=== PATIENT | female | born 1955 | race Caucasian/White ===

== ENCOUNTER 2019-01-19 16:40 | Day surgery (SDC) ==
[2019-01-19] MEDS ORDERED: NS 1,000 ML IV PRN (18:45)
[2019-01-19] MEDS ORDERED: ZOFRAN IV PRN (18:48)
[2019-01-19] MEDS ORDERED: DILAUDID IV PRN (18:50)
--- NOTE | 2019-01-19 19:24 | Diag Imaging Result Doc PS360 ---
EXAM: CT ABD/PELVIS W/PO AND IV CON - 01/19/2019 HISTORY: CHOLECYSTITIS TECHNIQUE: CT abdomen/pelvis with oral and intravenous contrast COMPARISON: 01/05/2019 ultrasound abdomen FINDINGS: The visualized lung bases appear clear. The gallbladder is mildly distended. The gallbladder andrade appear mildly thickened, with hazy external margins. There are no gross pericholecystic inflammatory changes identified, but the possibility of cholecystitis cannot be excluded. There is apparent sludge in the dependent portion of the gallbladder. There are no discrete calcified gallstones identified. The common bile duct is dilated up to 1.3 cm. The common bile duct measured 6 mm on the prior ultrasound. There is no discrete calcified common duct stone identified. There is no pancreatic mass or inflammation identified. There are no substantial abnormalities of the liver, spleen, or adrenal glands identified. There are nonspecific small retroperitoneal lymph nodes. There is a small broad-based anterior pelvic wall hernia which contains small bowel. There are no complicating features identified. There is no evidence of bowel obstruction. The cecum extends to the posterior pelvis. There are postsurgical changes at the rectosigmoid junction. There is no substantial bowel wall thickening identified. There is no free air, free fluid, or abscess identified. IMPRESSION: Mildly distended gallbladder. Mild thickening of gallbladder andrade, with hazy external margins. Sludge in the dependent portion of the gallbladder. Cholecystitis cannot be excluded. Dilated common bile duct, no specific etiology for which is apparent. This exam was performed using automated exposure control, adjustment of mA or kV according to patient size, and/or use of iterative reconstruction technique. Electronically signed by Ashish Palomino 01/19/2019 7:22 PM
[2019-01-19 20:05] LABS: URINE SOURCE CLEAN CATCH
[2019-01-19 20:11] LABS: BILIRUBIN URINE NEGATIVE (NEGATIVE); BLOOD URINE NEGATIVE (NEGATIVE); COLOR STRAW; GLUCOSE URINE NEGATIVE (NEGATIVE); KETONE URINE NEGATIVE (NEGATIVE); LEUKOCYTES URINE NEGATIVE (NEGATIVE); NITRITE URINE NEGATIVE (NEGATIVE); PH URINE 6.5; PROTEIN URINE NEGATIVE (NEGATIVE); SP GRAVITY URINE 1.014; TURBIDITY URINE CLEAR (CLEAR); UROBILINOGEN URINE NORMAL (NORMAL)
[2019-01-19 20:13] LABS: UR EPITHELIAL CELLS <10 /HPF (<10); URINE BACTERIA NEGATIVE /HPF; URINE RBC <10 /HPF (<10); URINE WBC <10 /HPF (<10)
[2019-01-19] MEDS: ZOSYN 3.375 GM in NS 50 ML IV SCH (21:03)
[2019-01-20] MEDS: ZOSYN 3.375 GM in NS 50 ML IV SCH ×4 (01:09→20:27)
--- NOTE | 2019-01-20 05:43 | HISTORY AND PHYSICAL ---
CHIEF COMPLAINT: "Pain across my upper abdomen since Wednesday." HISTORY OF PRESENT ILLNESS: This is a 63-year-old white female, well known to me, that has a of a bit of a complicated history. In 2008, she was found to have a very large rectal mass which ultimately turned out to be adenocarcinoma of the rectum, T3, N0, M0. She underwent an embolic low anterior resection, small-bowel resection, and total abdominal hysterectomy/bilateral salpingo- oophorectomy on 12/28/[address] Ramakrishna Montemayor in [place]. She subsequently underwent radiation therapy by Dr. Lani Pisano. She then underwent chemotherapy by Dr. Velasquez of [facility]. She had a very uneventful recovery and has been disease free since that time. She has been seeing Dr. Ramakrishna Montemayor on a yearly basis. On the week of 01/05/2019, she presented to my office after having a couple episodes of vomiting after she "ate a grilled cheese at a local restaurant in [place]." She felt like she had food poisoning. She did have some upper abdominal pain which began on the right side and would radiate to the left. She had several loose bowel movements. She was treated conservatively but her laboratory data at the time of her presentation showed a white blood cell count of 7.1 with a hemoglobin and hematocrit of 15 and 44,. Her liver enzymes showed alkaline phos of 102, SGOT of 16, SGPT of 14. A sonogram of the abdomen was performed, which revealed what appeared to be a small gallbladder polyp. Otherwise, no acute or active disease. There was no complicating features around the gallbladder. The patient did well until Wednesday of this past weekend, when she began having discomfort under her ribs which would radiate across the upper abdominal area. She described it as a "spasm." It would be sudden and escalating. She would get very nauseous and clammy. She did have some loose bowel movements. She had no fever or chills. She presented to my office today for re-evaluation, where she was found to be in moderate distress due to upper abdominal pain. She is admitted for further evaluation and treatment. PAST MEDICAL HISTORY: Surgeries: 12/28/2008 she had an embolic low anterior resection, small- bowel resection, total abdominal hysterectomy/bilateral salpingo-oophorectomy by Dr. Ramakrishna Montemayor in [place]. She had a in 1989. Medical illnesses: None, other then the tumor was an adenocarcinoma. It was a T3, N0, M0 adenocarcinoma of the rectum. She has had no evidence of recurrence. She underwent radiation therapy with Xeloda, with a total dose of 5040 cGy. She had no abnormal occurrences. She also underwent chemotherapy by Dr. Velasquez of [facility]. She had 8 treatments of FOLFOX. CURRENT MEDICATIONS: Include none. ALLERGIES: To Macrodantin, which gives her rash; Amoxil and cephalexin. SOCIAL HISTORY: She is a , white female. 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 She does not smoke nor drink. She had 2 boys by . FAMILY HISTORY: Her Mom and Dad are both living. Her Dad has mycosis fungoides. PHYSICAL EXAMINATION: GENERAL: Shows a pleasant white female, in no acute distress, but she is very uncomfortable with upper abdominal pain. VITAL SIGNS: Temperature is 97.4 degrees, pulse 67, respirations are 18, O2 saturation 99%, blood pressure 160/85. Weight 219 pounds. She is 64.5 inches tall. HEENT: TMs are clear. Pupils equally round, reactive. Nasal mucosa is moist. Oropharynx is clear. NECK: Supple. Good carotid pulses. No bruits. LUNGS: Clear. HEART: With a regular rate and rhythm. No murmur, rub, or gallop. ABDOMEN: Soft, somewhat quiet. She is not distended. She has a slightly positive Parker sign in the right upper quadrant. She has some tenderness to deep palpation and percussion in the right upper quadrant. MUSCULOSKELETAL/NEUROLOGIC: Intact with no peripheral edema, clubbing, or cyanosis. LABORATORY DATA: Current laboratory data reveals a sodium of 137, potassium was 3.16, BUN and creatinine 13 and 0.8, respectively. Blood sugar 117. Liver enzymes now show a total bilirubin of 2.6, alkaline phos 424, AST 105, ALT 237. Amylase 58. White blood cell count 5.0, hemoglobin and hematocrit 14 and 40, respectively with an MCV of 90. IMPRESSION: 1. A 63-year-old, white female, with what appears to be acute cholecystitis, now with possible common duct obstruction. There is no evidence for pancreatitis. CT scan is pending with and without contrast of the abdomen and pelvis at [facility]. 2. History of adenocarcinoma of the rectum in 2008, status post low anterior resection, radical hysterectomy/bilateral salpingo-oophorectomy. Followed by adjuvant treatment of chemotherapy and radiation therapy. No evidence for recurrences. 3. CT scan of the abdomen and pelvis is pending. We will discuss with surgery depending upon the findings of the CT scan. Patient request Dr. Stefano Leos if he is available. PLAN: 1. We will admit to [facility]. 2. NPO except for ice chips. 3. IV fluids using normal saline. 4. We will add Zosyn 3.75 mg every 6 hours. 5. I have discussed this with her in detail. cc: Ismael Leos MD
--- NOTE | 2019-01-20 08:31 | EKG Report ---
Test Performed on : 01/20/2019 08:09:59 AM Test Reason : pre-op Blood Pressure : / mmHG Vent. Rate : 059 BPM Atrial Rate : 059 BPM P-R Int : 168 ms QRS Dur : 134 ms QT Int : 484 ms P-R-T Axes : 068 -38 036 degrees QTc Int : 479 ms Sinus bradycardia. Left axis deviation Right bundle branch block Abnormal ECG No previous ECGs available Confirmed by Rebecca WALKER, Phillip Buck ([id number]) on 01/20/2019 9:10:30 AM
[2019-01-20] MEDS: POTASSIUM CHLORIDE 20 MEQ/SWI 20 MEQ/100 ML IVPB IV SCH ×3 (08:36→13:52)
[2019-01-20 09:22] LABS: AGAP 13; BUN 10 mg/dL (8-22); CALCIUM 9.6 mg/dL (8.8-10.2); CHLORIDE 107 mmol/L (98-107); COSMO 286; CREATININE 0.9 mg/dL (0.5-0.9); ESTIMATED GFR > 60; GLUCOSE 95 mg/dL (70-104); POTASSIUM 3.4 mmol/L (3.5-5.1); SODIUM 144 mmol/L (136-145); TCO2 24 mmol/L (25-35)
[2019-01-20] MEDS ORDERED: ZOSYN ONE (10:34)
--- NOTE | 2019-01-20 11:28 | PROGRESS NOTE ---
DATE: 01/20/2019 CHIEF COMPLAINT: No problems. VITAL SIGNS: Temperature is 97.7 degrees, pulse 60, respirations 18, blood pressure 136/74, O2 saturation 99%. Lipase last evening was 24. EKG is currently being done. Surgical consult has been done by Dr. Stefano Leos. PHYSICAL EXAMINATION: The patient is awake and alert. She complains of no pain. IMPRESSION: A 63-year-old, white female, now with acute cholecystitis and obstructed common bile duct. A CT scan yesterday evening demonstrated what appeared to be gallbladder sludge with a dilated common duct. There was pericholecystic inflammatory changes. No obvious calcified stone in the duct. The common bile duct measured 1.3 cm at its widest point. PLAN: 1. Patient is to undergo laparoscopic cholecystectomy later today by Dr. Stefano Leos. Explanations have been made to her in detail by both Dr. Stefano Leos and myself. She is certainly agreeable. 2. We will follow postoperatively. 3. Discussion was made that she perhaps might need an ERCP/stent if the distal common bile duct is not patent. 4. Hopefully she will be able to be discharged later this evening. 5. Her potassium on admission was 3.16. We will give her 2 doses of potassium preoperatively. We will check a day potassium level after her 1st dose. cc: MD Eugene Squires MD
--- NOTE | 2019-01-20 15:48 | GENERAL SURGERY CONSULTATION ---
DATE: 01/20/2019 REASON FOR CONSULTATION: Abdominal pain with concerns of cholecystitis and biliary obstruction. HISTORY OF PRESENT ILLNESS: A 63-year-old female who has had episodic colicky pain worsening over the last several weeks to months. She had an abdominal ultrasound that indicated a gallbladder polyp with normal LFTs within the last several weeks. She had symptom-free interval, however has the last several days had 2 more severe attacks that she describes as cramping pain that alleviated spontaneously. The most severe of which was yesterday afternoon, prompting further evaluation which showed elevation of her bilirubin in the 2 range with AST, ALT, and alkaline phosphatase. CT scan showed some mild biliary dilation, some thickening of the gallbladder with some sludge in the gallbladder, but no other extrinsic or intrinsic hepatic process. She feels better this morning and denies any jaundice. Her bowel function has been normal. She does have a history of rectal carcinoma treated with low anterior resection and adjuvant radiation and chemotherapy 10 years ago. PAST MEDICAL HISTORY: History of rectal carcinoma. PAST SURGICAL HISTORY: She has had a low anterior resection in 2008. She has had a total abdominal hysterectomy and bilateral salpingo-oophorectomy. She has had C- sections in the past. SOCIAL HISTORY: She is a retired teacher, now works at [employer]. She does not smoke or drink. FAMILY HISTORY: Reviewed. No history of cancer. REVIEW OF SYSTEMS: Ten point review of systems negative except what is mentioned in HPI. OBJECTIVE: General: She is afebrile, pulse 60, blood pressure 136/70, oxygen saturation 99%. General: She is alert, in no acute distress. HEENT: She has no scleral icterus or cervical mass. Cardiovascular: Normal rate. Regular rhythm. Pulmonary: No increased work of breathing on room air. Abdomen: Soft, nontender, nondistended with a lower midline scar and a Pfannenstiel scar with no palpable hernias or skin changes. Integument: Warm, dry without jaundice. Psychiatric: Appropriate affect. Neurologic: No gross deficits. Lymphatic: There is no cervical, axillary, or inguinal adenopathy. Peripheral vascular: She does have some trace lower extremity edema and otherwise well perfused. LABORATORY DATA: She had outpatient labs that were obtained that show a normal white blood cell count of 7.1, hematocrit 44, alkaline phosphatase of 102, ALT 16, 14. I believe her bilirubin was in the 2 range at that time. She has had a lipase that was 24 here, normal. Urinalysis is clear. I reviewed both her abdominal ultrasound and her CT scan of the abdomen and pelvis. ASSESSMENT AND PLAN: This is a 63-year-old female with symptomatic cholelithiasis. Biliary sludge is noted on CT scan, but not clearly demonstrated on her abdominal ultrasound. She now has some prominence over the common bile duct and mild elevation in her LFTs concerning for possible choledocholithiasis. She may have some early cholecystitis as well, although her pain does seem to have resolved. We discussed risks and benefits, pros and cons including bleeding, infection, conversion to open, damage to surrounding structures, bile leak, anticipated recovery and possible need for ERCP of common duct stones noted. She understands all this and consents. We will keep her NPO. She is on Zosyn which we will continue perioperatively, and plan for laparoscopic cholecystectomy with cholangiogram later this afternoon. cc: Eugene Leos MD MTDD
[2019-01-20] MEDS ORDERED: VERSED ONE (15:56)
[2019-01-20] MEDS ORDERED: SODIUM CHLORIDE 0.9% ONE (16:16)
[2019-01-20] MEDS ORDERED: SENSORCAINE 0.25%/EPI 1:200,000 ONE (16:16)
[2019-01-20] MEDS ORDERED: LR 1,000 ML ONE (16:16)
[2019-01-20] MEDS ORDERED: DIPRIVAN 1% ONE (16:26)
[2019-01-20] MEDS ORDERED: ZEMURON ONE (16:39)
[2019-01-20] MEDS ORDERED: TORADOL ONE (16:39)
[2019-01-20] MEDS ORDERED: ZOFRAN ONE (16:39)
[2019-01-20] MEDS ORDERED: XYLOCAINE-MPF 2% ONE (16:39)
[2019-01-20] MEDS ORDERED: QUELICIN (DOSE) ONE (16:39)
[2019-01-20] MEDS ORDERED: DECADRON ONE (16:39)
[2019-01-20] MEDS ORDERED: ROBINUL ONE ×2 (16:45→16:59)
[2019-01-20] MEDS ORDERED: FENTANYL ONE (16:57)
[2019-01-20] MEDS ORDERED: NEOSTIGMINE ONE (17:00)
[2019-01-20] MEDS ORDERED: GLUCAGON ONE (17:23)
--- NOTE | 2019-01-20 17:51 | Diag Imaging Result Doc PS360 ---
OPERATIVE CHOLANGIOGRAM - 01/20/2019 INDICATION: CHOLECYSTITIS TECHNIQUE: The exam was performed by the patient's surgeon. Total fluoroscopy time was 25 seconds. One image was obtained. COMPARISON: None FINDINGS: Contrast was infused into the cystic duct. This outlines a diffusely dilated common bile duct. No definite filling defect. There is substantial reflux of contrast into hepatic ducts which also appears somewhat dilated. There is a slight amount of passage into the duodenum. There is also some passage into the main pancreatic duct which appears grossly normal. IMPRESSION: Moderately dilated common bile duct without filling defect. This may indicate stricture or spasm at the papilla. Electronically signed by Maged Alfred 01/20/2019 5:48 PM
[2019-01-20] MEDS: DILAUDID ONE ×2 (18:31→18:36)
[2019-01-20] MEDS ORDERED: LR 1,000 ML IV SCH (19:07)
[2019-01-20] MEDS: PERIDEX MT SCH (22:15)
[2019-01-20] MEDS: NORCO-7.5 PO PRN (23:25)
[2019-01-21] MEDS: ZOSYN 3.375 GM in NS 50 ML IV SCH ×3 (00:09→07:35)
--- NOTE | 2019-01-21 01:54 | OPERATIVE NOTE ---
PROCEDURE DATE: 01/20/2019 PREOPERATIVE DIAGNOSIS: Symptomatic cholelithiasis with hyperbilirubinemia. POSTOPERATIVE DIAGNOSIS: Acute cholecystitis. PROCEDURE PERFORMED: Laparoscopic cholecystectomy with cholangiogram. SURGEON: Eugene Leos MD. ESTIMATED BLOOD LOSS: 10 mL. SPECIMENS: Gallbladder. ANESTHESIA: General. DRAINS: Leno. INDICATIONS: This is a female who has had episodic pain for some time. She had an ultrasound a while back that showed possible gallbladder polyp, but no evidence of inflammation. She had worsening symptoms and worsening of her LFTs. CT scan showed some thickening of the gallbladder wall with possible sludge within the lumen. OPERATIVE FINDINGS: 1. There was a densely inflamed gallbladder with dense duodenal to gallbladder adhesions. There was adhesions to her lower midline incision from prior low anterior resection. There was a dilated cystic duct with several impacted very small gallstones. 2. Interpretation of intraoperative cholangiogram showed rapid flow of contrast through a moderate but dilated cystic duct into a very prominent and even dilated common bile duct, but no filling defects and free flow of contrast into the duodenum. Intrahepatic radicals were normal, and distal portion of the pancreatic duct appeared normal. OPERATIVE NOTE: Risks, benefits, and alternatives discussed with the patient and she consented to the procedure. She was seen preoperatively and surgical site was confirmed. She was taken to the operating room, placed in supine position. General anesthesia induced. Her abdomen is prepped with chlorhexidine solution, draped in usual fashion. After time-out, I made a supraumbilical incision, carried this down the fascia. The fascia was incised along the midline, elevating the peritoneum. We incised this and placed a 12 mm Rhina trocar. The abdomen was then insufflated to 15 mmHg. She tolerated this well. Placed in reverse Trendelenburg, left side down, 3 additional trocars, 5 mm were placed, 1 at the epigastrium, 1 in the midclavicular line off the costal margin, 1 more laterally. The gallbladder was grasped and retracted cephalad. Using a combination of blunt and electrocautery dissection, we took down omental adhesions to the gallbladder. Identified the duodenum, which was very adherent to the inferior aspect of the gallbladder and the infundibulum. We retracted this gently away and were able to score the thickened peritoneum of the gallbladder, the duodenum we felt safely without injuring it. This allowed further exposure of the infundibulum. We scored the peritoneum and dissected out widely the cystic duct, which was quite dilated. We established a critical view with liver visualized through this triangle. There was a large artery that coursed medially along the gallbladder with several feeding branches entering the gallbladder. We placed a clip on the gallbladder side and made a ductotomy through the very thickened cystic duct, and milked several small black stones out of the lumen of the gallbladder. We suctioned these out. The cholangiogram catheter was then advanced and a cholangiogram was performed with above findings. After satisfactory cholangiogram, we re-established our exposure and triply clipped the cystic duct, dividing it. There was good closure of the duct, although it was quite large. We then began removing the gallbladder from the gallbladder fossa. We dissected out and away this medial arterial branch, and clipped several feeding artery branches as they entered the gallbladder. We removed the gallbladder intact. It did seem as though this medial arterial branch, the main, coursed back into the liver itself further up the gallbladder fossa, but it had a strong pulse and it was well protected. The gallbladder placed in an EndoCatch bag. We copiously irrigated the abdomen, placed a Leno drain in the gallbladder fossa. We again reinspected our duodenum and there seemed to be no injury here. Given the friable surface, we placed some Hattie powder within the gallbladder fossa and over some oozing around the duodenum, and confirmed hemostasis. The remaining trocars removed. The drain was secured with nylon suture. The gallbladder was brought out through the umbilical incision. The fascia closed with interrupted 0 Vicryl sutures. Skin closed with 4-0 Monocryl. Dermabond was applied. Counts correct. She was awoken and transferred to recovery. I spoke to family. cc: Eugene Leos MD
[2019-01-21 07:54] VITALS: BP 115/64
[2019-01-21] MEDS: PERIDEX MT SCH (09:04)
[2019-01-21] MEDS: NORCO-7.5 PO PRN (09:32)
--- NOTE | 2019-01-21 13:40 | PROGRESS NOTE ---
DATE: 01/21/2019 Ms June Mcmahon is postop day 1 from laparoscopic cholecystectomy per Dr. Stefano Leos. She had symptomatic gallstones. Intraoperative cholangiogram initially showed some small stones in the common duct, but I think they were flushed through during the cholangiogram. She has a MADHU drain in place with mostly serosanguineous fluid. She is awake and comfortable. She is tolerating a regular diet, and I will look to get her home today under the care of her family with followup per Dr. Leos. I will plan to remove her Leno drain prior to discharge. cc: MD Eugene Santiago MD
== END 2019-01-21 11:03 | disposition home or self-care (01) ==
LOC: OPS 16:40 → OBSVTOIN 16:40 → INTOOBSV 16:40 → 4N 17:12 → OPS 01-21 11:03
PROVIDERS: ATTEND Family Medicine